=== PATIENT | male | born 1935 | race Caucasian/White ===

== ENCOUNTER 2019-04-01 08:39 | Outpatient (CLI) | payer MEDICARE, SELFPAY ==
--- NOTE | ~2019-04-01 | XR_ITS ---
EXAMINATION: XR barium swallow modified EXAM DATE: 04/01/2019 09:39 INDICATION: Dysphagia. TECHNIQUE: Modified barium esophagram was performed by myself to administered fluoroscopy, in conjun ction with speech pathologist who administered barium in varying consistencies as per speech patholog ist documentation. This was recorded on tape. The DAP for this procedure was 0.9 Gycm2. FINDINGS: Oral stage: Adequate function. Pharyngeal phase: Adequate function. Laryngeal penetration: None. Aspiration: None. Laryngeal sensitivity: Present. IMPRESSION: Patient tolerated oral feedings in the upright position. Please refer to speech patholo gist findings and specific feeding recommendations. Reviewed, dictated and finalized at location A. R SETTER IMPRESSION: Patient tolerated oral feedings in the upright position. Please r efer to speech pathologist findings and specific feeding recommendations.
--- NOTE | 2019-04-01 12:34 | STOPEVAL ---
MODIFIED BARIUM SWALLOW EVALUATION: Thank you for referring this patient to [facility] [place]. Admitting Provider: Attending Provider: Fanny Deleon MD Referring Provider: JUAN Outpatient Evaluation Start: 04/01/19 11:55 Freq: Status: Active Protocol: Document 04/01/19 09:00 BECHERERT (Rec: 04/01/19 12:02 BECHERERT [id number]) Therapy Assessment Status Assessment Status Assessment Status Evaluation Outpatient Past Medical History Neurological History Hx Parkinson's Disease Yes: dx'd 6 months ago per pt Cardiovascular History Hx Coronary Artery Bypass Graft Yes: triple Gastrointestinal History Hx Esophageal Disorders Yes: multiple dilatations Pain Assessment Timing of Pain Assessment Timing of Pain Assessment Assessment Self Report Self Report Pain Level 0 Pain Scale Pain Scale Used Numeric (1 - 10) Pain Score Pain Score 0: Self Report Modified Barium Swallow Evaluation Recent Swallowing History Reports Dysphagia Yes: I can't swallow solids Onset of Dysphagia 1-2 weeks History of Dysphagia No History of Related Medical Diagnosis Parkinson's Disease Other Factors Impacting Dysphagia None History of Pneumonia No Reported Difficult Consistencies Solids Intake Method Prior to Swallow Oral Evaluation Diet Prior to Swallow Evaluation Regular, Level 7 Liquid Consistency Prior to Swallow Thin (0) Evaluation Consistency Thin Uncontrolled 2 Method of Presentation Straw Oral Preparatory Symptoms None Oral Phase Symptoms None Pharyngeal Phase Symptoms Within Functional Limits,Bony Protuberance Severity of Vallecular Residue None - 0% No Residue Severity of Pyriform Sinus Residue None - 0% No Residue 8 Point Laryngeal Penetration-Aspiration Material Does Not Enter Airway Scale Cervical/Esophageal Symptoms Within Functional Limits Thin Uncontrolled 1 Method of Presentation Cup Oral Preparatory Symptoms None Oral Phase Symptoms None Pharyngeal Phase Symptoms Within Functional Limits,Bony Protuberance Severity of Vallecular Residue None - 0% No Residue Severity of Pyriform Sinus Residue None - 0% No Residue 8 Point Laryngeal Penetration-Aspiration Material Does Not Enter Airway Scale Cervical/Esophageal Symptoms Within Functional Limits Solid Consistency Uncontrolled 2 Other Amount cracker Method of Presentation Spoon Oral Preparatory Symptoms None Oral Phase Symptoms None Pharyngeal Phase Symptoms Within Functional Limits,Bony Protuberance Severity of Vallecular Residue None - 0% No Residue Severity of Pyriform S
== END 2019-04-01 08:40 | disposition home or self-care (01) ==
LOC: ANHIMG 08:45
PROVIDERS: PCP Family Medicine; Visit Provider Family Medicine
DX: T17.908A Unspecified foreign body in respiratory tract, part unspecified causing other injury, initial encounter (principal); R13.10 Dysphagia, unspecified; X58.XXXA Exposure to other specified factors, initial encounter; Y93.9 Activity, unspecified; Y92.9 Unspecified place or not applicable; Y99.9 Unspecified external cause status
CPT/HCPCS: 92611

== ENCOUNTER 2019-04-03 09:40 | Inpatient (IN) | payer MEDICARE, SELFPAY ==
[2019-04-03] VITALS (16 sets, daily range): BP systolic 85–117; BP diastolic 46–88; PULSE 58–130; RESP 17–35; TEMP 36.4–37.1; O2SAT 88–100; BMI 24.6; BMI 24.9
--- NOTE | ~2019-04-03 | NM_ITS ---
NM pul perf vent debbi dif w im INDICATION: Shortness of breath TECHNIQUE: The patient inhaled aerosolized 13.9 mCi xenon-133. Following ventilation scan, 4.7 mCi T c 99m MAA was injected intravenously for perfusion images. Multiple images were then acquired. COMPARISON: Chest x-ray dated 04/03/2019 FINDINGS: The comparison chest radiograph demonstrates basilar atelectasis with cardiomegaly. There a re small matched defect in the left lower lobe. Mild retention of radiotracer on washout images consi stent with obstructive pulmonary disease. No significant V/Q mismatches are identified. There are mat ched defects in the left lower lobe as well. IMPRESSION: 1: Low probability for pulmonary embolism. Reviewed, dictated and finalized at location A. OMECHANISM ASSEMBLER
--- NOTE | ~2019-04-03 | XR_ITS ---
EXAMINATION: XR chest 2V DATE: 04/06/2019 09:49 INDICATION: Pneumonia. TECHNIQUE: Frontal and lateral views of the chest were obtained. COMPARISON: Chest 2 views 04/03/2019, CT abdomen and pelvis 08/02/2018 FINDINGS: There is a large hiatal hernia. There is eventration of anterior right hemidiaphragm. There is chronic pleural thickening on the left. No significant pleural effusion. There is mild atelectasi s in the lower lung zones. No pneumothorax. Cardiomegaly is noted. Median sternotomy wires and medias tinal surgical clips are seen, likely from prior coronary artery bypass grafting. IMPRESSION: 1. Large hiatal hernia. 2. Mild atelectasis in the lower lung zones. 3. Cardiomegaly. Reviewed, dictated and finalized at location A. INKER UPPERS
--- NOTE | ~2019-04-03 | XR_ITS ---
EXAMINATION: XR chest 2V DATE: 04/03/2019 10:05 INDICATION: Shortness of breath. TECHNIQUE: Frontal and lateral views of the chest were obtained. COMPARISON: Chest 2 views 05/06/2018, CT abdomen and pelvis 10/02/2018 FINDINGS: There is eventration of anterior right hemidiaphragm. There is chronic pleural thickening o n the left. No significant pleural effusion. There is a large hiatal hernia. There is mild atelectasi s in the lower lung zones. No pneumothorax. Cardiomegaly is noted. Median sternotomy wires and medias tinal surgical clips are seen, likely from prior coronary artery bypass grafting. IMPRESSION: 1. Large hiatal hernia. 2. Mild atelectasis in the lower lung zones. 3. Cardiomegaly. Reviewed, dictated and finalized at location A. CTION MOLDING MACHINE SETTER
--- NOTE | 2019-04-03 09:48 | ECG_ITS ---
Measurements Intervals [place] Rate: 125 P: 195 OH: 116 QRS: -77 QRSD: 142 T: 79 QT: 331 QTc: 479 Interpretive Statements SINUS OR ECTOPIC ATRIAL TACHYCARDIA VENTRICULAR PREMATURE COMPLEXES IVCD, CONSIDER ATYPICAL LBBB INFERIOR INFARCT OR DUE TO LBBB BASELINE ARTIFACT- I, III, AVL ABNORMAL ECG Electronically Signed On 04-04-2019 17:44:11 SENIOR ENGINEERING TEAM LEADER by Michael Mendoza D.O.
--- NOTE | 2019-04-03 10:03 | ED.SOB ---
HPI - SOB/Dyspnea General Chief Complaint: Shortness of Breath/Dyspnea Stated Complaint: DIFFICULTY BREATHING Time Seen by Provider: 04/03/19 09:44 Source: patient and RN notes reviewed Mode of arrival: EMS Limitations: no limitations History of Present Illness HPI Narrative: Pt is an 83 y/o male presenting to the ED c/o SOB. Pt reports he has been experiencing SOB for about a week that worsened yesterday. Pt notes his Bipap machine that he uses for a Hx of sleep apnea stopped working last night. Pt reports his SOB is worsened with exertion and lying flat. Pt states he does not wear oxygen continuously throughout the day at home. Pt also reports lt sided ABD pain, generalized myalgia, generalized weakness that worsened yesterday, dry cough for 2-3 weeks, and pain with cough, but denies fever, CP, BLE swelling, N/V, diarrhea, or constipation. Pt states he has Hx's of Parkinson's disease and CHF, but denies Hx's of COPD or asthma. Pt notes he sees Dr. Egan as his Rock Singer due to a Hx of a leaky valve . Pt states he is able to ambulate with a walker at home. Pertinent past history: congestive heart failure Onset (ago): week(s) (1) Exacerbating factors: lying flat and exertion Associated symptoms: cough (Dry), abdominal pain (LT sided; generalized weakness; generalized myaglia) and other (Pain with cough;) Related Data Allergies Allergy/AdvReac Type Severity Reaction Status Date / Time iodine Allergy Severe SHOCK FROM Verified 04/03/19 11:02 CARDIAC CATH Iodinated Contrast Media Allergy Unknown Unknown Verified 04/03/19 11:02 shellfish derived Allergy Unknown Asthma Verified 04/03/19 11:02 Contrast Media Allergy Severe SHOCK FROM Uncoded 04/03/19 11:02 CARDIAC CATH Review of Systems Review of Systems: Narrative: Constitutional: Positive for generalized weakness. Negative for fever. Respiratory: Positive for dyspnea, dry cough, and pain with cough. Cardiovascular: Negative for chest pain. Gastrointestinal: Positive for lt sided abdominal pain. Negative for nasuea, vomiting, diarrhea, or constipation. Musculoskeletal: Positive for generalized myaglia. Negative for BLE swelling. All systems reviewed & are unremarkable except as noted in HPI and below PMFSH Past Medical History Medical History Arthritis Mcdermott's esophagus with dysplasia BPH (benign prostatic hyperplasia) CAD (coronary artery disease) CHF (congestive heart failure) With last echocardiogram within our system December 2012 demonstrated mild mitral regurgitation mild aortic regurgitation, dilated ascending aorta at 4.2 cm, atrial septal aneurysm with without evidence of interatrial shunt Dementia Diagnosed 2019 Diverticulitis February 2008 DVT (deep venous thrombosis) Essential (primary) hypertension GERD (gastroesophageal reflux disease) Gout, unspecified Hard of hearing Hiatal hernia History of esophageal stricture Normal modified barium swallow 04/01/2019 HLD (hyperlipidemia) Kidney stones Most recent was October 2018 with cystoscopy and extraction recently passed stone with right ureteroscopy performed by Dr. Chen Macular degeneration Migraine Mitral valve prolapse Parkinson disease Parkinson disease Pericarditis Pneumonia PVD (peripheral vascular disease) Sleep apnea with use of nocturnal bilevel positive airway pressure (BPAP) Polysomnogram October 2015 recommended ASV with I max of 15 cm water I minimum of 3 cm water and end-expiratory pressure of 6 cm water Spinal stenosis Thoracic aortic aneurysm, without rupture 4.7 center fusiform ascending aneurysm noted on CT scan 2014 Ulcer Surgical History Surgical History H/O cystoscopy History of back surgery L5-S1 in the 1970s History of bilateral cataract extraction History of urethral stent Hx of CABG 2012 three vessel CABG performed at [facility]. Patient's cardiol
[2019-04-03 10:28] LABS: Basophils Absolute Auto 0.1 K/mm3 (0.0-0.1); Basophils Percent Auto 0.4 % (0.2-1.2); Eosinophils Absolute Auto 0.2 K/mm3 (0-0.3); Eosinophils Percent Auto 1.1 % (0-4.4); Hematocrit 42.3 % (42.0-52.0); Hemoglobin 13.4 g/dL (14.0-18.0); Immature Granulocyte Absolute 0.07 K/mm3 (0.00-0.031); Immature Granulocyte Percent A 0.4 % (0-0.5); Lymphocytes Absolute Auto 0.73 K/mm3 (0.9-3.2); Lymphocytes Percent Auto 4.3 % (18.3-44.2); Mean Corpuscular HGB Conc 31.7 g/dl (32-36); Mean Corpuscular Hemoglobin 28.6 pg (26-34); Mean Corpuscular Volume 90.4 fl (80-100); Mean Platelet Volume 12.2 fl (7.4-10.4); Monocytes Absolute Auto 1.9 K/mm3 (0.1-0.6); Monocytes Percent Auto 11.3 % (2.6-8.5); Neutrophils Absolute Auto 14.1 K/mm3 (1.3-6.7); Neutrophils Percent Auto 82.5 % (45.5-73.1); Platelet Count Result 254 k/mm3 (150-375); Red Blood Count 4.68 M/mm3 (4.6-6.20); Red Cell Distribution Width 14.3 % (11.5-14.5); White Blood Count 17.1 K/mm3 (4.5-10.0)
[2019-04-03 10:41] LABS: Blood Urea Nitrogen 29 mg/dL (9-20); Calcium 9.5 mg/dL (8.4-10.2); Carbon Dioxide 22 mmol/L (22-30); Chloride 105 mmol/L (98-107); Estimated Glomerular Filt Rate 41; Glucose 81 mg/dL (75-110); Sodium 141 mmol/L (137-145)
[2019-04-03 10:56] LABS: D Dimer 0.71 ug/mL (<0.48)
[2019-04-03 10:57] LABS: NT Pro B Type Natriuretic Pept 9520 PG/ML (5-100); Troponin I 0.704 ng/mL (0.000-0.034)
[2019-04-03 11:37] LABS: Lactic Acid Reflex 1.2 mmol/L (0.7-2.1)
[2019-04-03] MEDS: FUROSEMIDE INJ 40 MG/4 ML VIAL IV PUSH (12:55)
[2019-04-03] MEDS: ACETAMINOPHEN 325 MG TABLET 650 MG PO (14:53)
--- NOTE | 2019-04-03 15:09 | PC.NURSE ---
Pt taken by [facility] for VQ scan, unable to transfer patient to IMU
[2019-04-03 18:11] LABS: Troponin I 0.796 ng/mL (0.000-0.034)
--- NOTE | 2019-04-03 23:34 | PM.IMHP ---
H&P: HPI History of Present Illness Chief complaint: Shortness of breath, weakness Narrative: Date and time of patient contact 04/03/2019 at 10:00 p.m. Eugene Rod is a 83 year old male with a past medical history of CHF, Parkinson's disease, and chronic pain who presented to the ER with shortness of breath, increasing weakness and cough. Patient reports he has been weak for several months and is being hip getting progressively worse for the last 3 weeks. Over the last 3 weeks he has had a cough that is nonproductive in nature associated with rhinorrhea. He denies any fevers or chills. He reports his is been ill with similar symptoms. He saw his primary care physician and was prescribed amoxicillin which has seemed to help his cough. He does have a history of esophageal stricture in the past. He reports he was sometimes coughed so much that he feels if it is trachea closes off and then he will become panicked for a minute or 2. He has been having episodes of difficulty swallowing with eating and coughing up food if it is solid.. He subsequently had an outpatient esophagram 04/01/2019 which was normal. He reports for the 48 hours he has been able to eat what he wants without having recurrent vomiting. He has been having significant orthopnea and some mild dyspnea on exertion. No orthopnea has been worse for the last 3 weeks. He wears a BiPAP at night but usually have to take on and off multiple times a night. However last night he felt that the BiPAP was broke because it was blowing some much pressure at him in leaking around the mask. He denies any chest pain or palpitations. He does have chronic low back pain due to spinal stenosis. His doctors recently changes pain medications to try to help with his pain and weakness without success. He does have Parkinson's and has had increased tremor over recent months. He states that his doctor has discussed with him starting some Parkinson's medications but has not started them as of yet. Patient denies having any lower extremity swelling or abdominal swelling. He reports chronic low urinary stream but feels as if he is able to completely empty his bladder. He occasionally has some dysuria with start of urinary stream but this resolves. Denies hematuria. He reports normal bowel movements without hematochezia or melena. He has chronic dry mouth. He wears dentures but has not or his bottom dentures in quite some time as they do not fit correctly. Source of information: Past medical records. And patient report. The patient is a good historian despite his tightness of dementia. Review of Systems Review of Systems: Narrative: Except as documented in the HPI, all other systems were reviewed and are negative. FORMERLY [facility], 1928[facility] Past Medical History Medical History (Updated 04/04/19 @ 00:35 by Moni Machado DO) Arthritis Mcdermott's esophagus with dysplasia BPH (benign prostatic hyperplasia) CAD (coronary artery disease) CHF (congestive heart failure) With last echocardiogram within our system December 2012 demonstrated mild mitral regurgitation mild aortic regurgitation, dilated ascending aorta at 4.2 cm, atrial septal aneurysm with without evidence of interatrial shunt Dementia Diagnosed 2019 Diverticulitis February 2008 DVT (deep venous thrombosis) Essential (primary) hypertension GERD (gastroesophageal reflux disease) Gout, unspecified Hard of hearing Hiatal hernia History of esophageal stricture Normal modified barium swallow 04/01/2019 HLD (hyperlipidemia) Kidney stones Most recent was October 2018 with cystoscopy and extraction recently passed stone with right ureteroscopy performed by Dr. Chen Macular degeneration Migraine Mitral valve prolapse Parkinson disease Parkinson disease Pericarditis Pneumonia PVD (peripheral vascular disease) Sleep apnea with use of nocturnal bilevel positive airway pressure (BPAP) Polysomnogram October 2015 recommended ASV with I max of 15
[2019-04-04] VITALS (15 sets, daily range): BP systolic 84–107; BP diastolic 43–93; PULSE 82–127; RESP 16–32; TEMP 36–36.4; O2SAT 96–100
--- NOTE | 2019-04-04 | ECHO_ITS ---
Patient Info Name: Eugene Rod Age: 83 years : 1935 Gender: Male Ht: 70 in Wt: 176 lbs BSA: 1.99 m2 HR: 115 bpm BP: 102 / 59 mmHg Technical Quality: Fair Exam Date: 04/04/2019 12:56 PM Exam Location: [facility] Patient Status: Inpatient Admit Date: 04/03/2019 Staff Ordering Physician: Leslie Doramn MD Patient Clerical Assistant: Cyndi Avila RDCS Attending Provider: Ko Dunham MD Exam Type: CA echo doppler color flow Study Info Complete two-dimensional, color flow and Doppler transthoracic echocardiogram is performed. Summary 1. Severe LV enlargement, mild LVH; severe global LV systolic dysfunction with ejection fraction approximately 15%; grade 3/4 diastolic function with elevated left heart pressures. Moderate left atrial enlargement. Mitral valve mildly thickened with mitral annular calcification, mild MR. Aortic valve sclerosis, mild stenosis, mild aortic regurgitation. Mild tricuspid regurgitation, RVSP 20 mmHg, probably an underestimation of PA pressures. Left Ventricle Left ventricular chamber dimension is severely enlarged. Left ventricular systolic function is severely reduced, estimated at <15%. There is mildly increased left ventricular wall thickness. The left ventricular diastolic function is grade IV diastolic dysfunction. Right Ventricle Right ventricular chamber dimension is normal. Right ventricular systolic function is normal. Left Atria Left atrial chamber dimension is moderately enlarged. Right Atria Right atrial chamber dimension is normal. Aortic Valve There is moderate aortic valve sclerosis. There is mild aortic valve stenosis with a peak velocity of 167 cm/s, mean gradient of 5 mmHg, and aortic valve area of 1.9 cm2. There is mild aortic valve regurgitation. Pulmonic Valve The pulmonic valve is not well visualized. There is mild pulmonic regurgitation. Mitral Valve The mitral valve has thickened leaflets. There is mild mitral valve regurgitation. The mitral valve annulus is mildly calcified. Tricuspid Valve The tricuspid valve leaflets are normal. There is mild tricuspid valve regurgitation. No pulmonary hypertension, estimated pulmonary arterial systolic pressure is 20 mmHg. Pericardium/Pleural The pericardium appears normal. There is no pericardial effusion. Aorta The aortic root size at the sinus of Valsalva is normal. The prox ascending aorta size is normal. Left Ventricular Outflow Tract Name Value Normal LVOT 2D LVOT Diameter 2.6 cm LVOT Doppler LVOT Peak Gradient 1 mmHg LVOT Mean Gradient 0 mmHg LVOT VTI 8 cm LVOT VTI/AV VTI Ratio 0.4 LVOT Stroke Volume 45 ml LVOT CO 5.1 l/min LVOT CI 2.5 l/min/m2 Pulmonic Valve Name Value Normal PV Doppler
[2019-04-04 05:57] LABS: Basophils Absolute Auto 0.1 K/mm3 (0.0-0.1); Basophils Percent Auto 0.4 % (0.2-1.2); Eosinophils Absolute Auto 0.4 K/mm3 (0-0.3); Eosinophils Percent Auto 2.9 % (0-4.4); Hematocrit 39.9 % (42.0-52.0); Hemoglobin 12.6 g/dL (14.0-18.0); Immature Granulocyte Absolute 0.06 K/mm3 (0.00-0.031); Immature Granulocyte Percent A 0.4 % (0-0.5); Lymphocytes Absolute Auto 1.53 K/mm3 (0.9-3.2); Lymphocytes Percent Auto 11.2 % (18.3-44.2); Mean Corpuscular HGB Conc 31.6 g/dl (32-36); Mean Corpuscular Hemoglobin 27.9 pg (26-34); Mean Corpuscular Volume 88.5 fl (80-100); Mean Platelet Volume 12.8 fl (7.4-10.4); Monocytes Absolute Auto 1.5 K/mm3 (0.1-0.6); Neutrophils Absolute Auto 10.1 K/mm3 (1.3-6.7); Neutrophils Percent Auto 74.1 % (45.5-73.1); Platelet Count Result 242 k/mm3 (150-375); Red Blood Count 4.51 M/mm3 (4.6-6.20); Red Cell Distribution Width 14.2 % (11.5-14.5); White Blood Count 13.7 K/mm3 (4.5-10.0)
[2019-04-04 06:15] LABS: Blood Urea Nitrogen 32 mg/dL (9-20); Calcium 9.1 mg/dL (8.4-10.2); Carbon Dioxide 23 mmol/L (22-30); Chloride 100 mmol/L (98-107); Estimated CRCL calculation 37 ml/min; Estimated Glomerular Filt Rate 48; Glucose 95 mg/dL (75-110); Potassium 4.2 mmol/L (3.4-5.0); Sodium 138 mmol/L (137-145)
[2019-04-04] MEDS: OPTI-GEN TAB 2 TABLET PO (09:43)
[2019-04-04] MEDS: PANTOPRAZOLE SOD SESQUIHYDRATE 20 MG TAB PO ×2 (09:44→17:50)
[2019-04-04] MEDS: lisinopriL 20 MG TABLET PO (09:45)
[2019-04-04] MEDS: LORATADINE 10 MG TABLET PO (09:45)
[2019-04-04] MEDS: allopurinoL 100 MG TABLET PO (09:45)
[2019-04-04] MEDS: TAMSULOSIN HCL 0.4 MG CAPSULE PO (09:46)
[2019-04-04] MEDS: ENOXAPARIN 40 MG/0.4 ML SYRINGE SUB-Q ×2 (09:46→14:05)
[2019-04-04] MEDS: DULOXETINE HCL 30 MG CAPSULE.DR PO (09:47)
[2019-04-04] MEDS: FINASTERIDE 5 MG TABLET PO (09:47)
[2019-04-04] MEDS: MICONAZOLE NITRATE 2% CREAM 30 GM TUBE 1 APPLIC TOPICAL ×2 (09:48→22:38)
[2019-04-04] MEDS: FUROSEMIDE INJ 40 MG/4 ML VIAL IV PUSH ×2 (09:48→17:50)
[2019-04-04] MEDS: FLUTICASONE PROPIONATE 0.05% NA SPR 16 GM BTL (*BKC) 2 SPRAY NASAL (09:48)
--- NOTE | 2019-04-04 12:14 | PM.CNCAR ---
Assessment and Plan Assessment and plan (1) Community acquired pneumonia: Qualifiers: Laterality: unspecified laterality Qualified Code(s): J18.9 - Pneumonia, unspecified organism Code(s): J18.9 - Pneumonia, unspecified organism Status: Acute Assessment and Plan: Management of patient's respiratory tract infection with appropriate antibiotics as per primary team. (2) Ischemic cardiomyopathy: Code(s): I25.5 - Ischemic cardiomyopathy Status: Acute Assessment and Plan: Echocardiogram with Doppler is pending. Patient has known CAD, minimal troponin elevation which is essentially flat in the setting of infection. EKG shows atrial fibrillation with RVR. (3) Atrial fibrillation with RVR: Code(s): I48.91 - Unspecified atrial fibrillation Status: Acute Assessment and Plan: 83-year-old male with CAD, history of CABG x3 approximately 10 years ago as per patient (operative report is not available at this moment), hypertension, CHF with preserved ejection fraction, valve heart disease-moderate MR, moderate severe AI; hypertension, Parkinson disease, CKD. Patient admitted with symptoms of respiratory tract infection, also found to be in atrial fibrillation with RVR. Troponins are minimally elevated and essentially flat. NT proBNP is elevated. -since patient's blood pressure is relatively low, will initiate on amiodarone. Continue to monitor on telemetry. -anticoagulation with low-molecular weight heparin -hold home antihypertensives for now due to hypotension. -echocardiogram with Doppler is pending -monitor on telemetry History of Present Illness History of Present Illness Consult date/time: 04/04/19 12:14 Date of consult: 04/04/2019 Reason for consult: Worsening shortness of breath, CHF Requesting physician:Dr Dorman Chief complaint: Worsening shortness of breath HPI: 83-year-old male with CAD, history of CABG x3 approximately 10 years ago as per patient (operative report is not available at this moment), hypertension, CHF with preserved ejection fraction, valve heart disease-moderate MR, moderate severe AI; hypertension, CKD, Parkinson disease. Patient has baseline dyspnea on mild exertion. He uses walker for ambulation around his house. He states that his shortness of breath got worse for about 2 weeks associated with cough without significant expectoration. He reports pain in the chest during coughing. He does not have pain in the chest when he walks or when he does not cough. He also reports palpitations, denies any dizziness or syncope. He reports generalized weakness. Patient states that he was exposed to his who has also had described as bad cold in last few days. He denies any fever or chills at present. He presented to [facility] emergency room with these symptoms on 04/03/2019. EKG which I personally evaluated showed atrial fibrillation with RVR, left bundle branch block, inferior infarct-age undetermined. Previous EKG had shown sinus rhythm, intraventricular conduction delay. Patient does not recall any previous diagnosis of atrial fibrillation. Troponins are minimally elevated and essentially flat. NT proBNP is elevated at 9 520. Previous echocardiogram from 01/02/2017 reported ejection fraction 50-55%, grade 2 diastolic dysfunction, anterior mitral valve prolapse, moderate MR, moderate severe AI. Patient follows up with Dr. Egan for his cardiovascular care Reason For Visit: Shortness of breath, weakness Review of Systems Constitutional: Constitutional: Denies chills, Denies fatigue, Denies fever(s) and Denies headache(s) Comments: Generalized fatigue and weakness Eyes: Eyes: Reports as per HPI, Denies change in vision, Denies loss of vision and Denies eye pain ENT: Reports as per HPI, Reports Normal hearing present, Denies headache(s), Denies lip swelling, Denies epistaxis and Denies sore throat Cardiovascular: Cardiovascular: Reports
[2019-04-04] MEDS: AMIODARONE 360 MG/D5W 200 ML 360 MG/200 ML BAG 33.3 MG IV CONT (14:02)
--- NOTE | 2019-04-04 15:38 | PM.IMPN ---
Progress Note: A&P Assessment and Plan (1) Atrial fibrillation with RVR: Code(s): I48.91 - Unspecified atrial fibrillation Status: Acute Assessment and Plan: Patient with new onset atrial fibrillation patient seen by parakeet raiser started the patient on amiodarone and Lovenox will continue to monitor on telemetry cardiac echo is pending will order TSH profile (2) CHF exacerbation: Qualifiers: Heart failure type: unspecified Qualified Code(s): I50.9 - Heart failure, unspecified Code(s): I50.9 - Heart failure, unspecified Status: Acute Assessment and Plan: 04/04/19 15:38 Patient is 83-year-old male with history of coronary artery disease status post CABG three-vessel 10 years ago with history of hypertension congestive heart failure aortic insufficiency presented emergency department with a complaint of weakness fatigue which he attributed to upper respiratory infection because his also has similar URI, patient complains of chest pain with cough denies any chest pain with exertion denies any fever or chills, patient was seen by parakeet raiser reviewed his EKG and patient is found to have a new onset atrial fibrillation with RVR started the patient on amiodarone drip and Lovenox, patient is also being treated for community-acquired pneumonia I suspect patient has silent aspiration added Flagyl to cover for anaerobics, patient also has a tremor was seen by his primary care doctor suspect patient may have Parkinson disease however he was not started on any medication pending neurology consult which will get while in the hospital, patient cardiac echo is pending most likely patient has systolic dysfunction will follow-up on echo. (3) Community acquired pneumonia: Qualifiers: Laterality: unspecified laterality Qualified Code(s): J18.9 - Pneumonia, unspecified organism Code(s): J18.9 - Pneumonia, unspecified organism Status: Acute Assessment and Plan: Given the patient's leukocytosis cough and x-ray findings will continue patient on antibiotic therapy with Rocephin and azithromycin. The patient's home Celexa has been held food contraindications with azithromycin. Patient is placed on amiodarone for new onset atrial fibrillation will stop azithromycin and replace with doxycycline will also add of Flagyl as I suspect patient may have silent aspiration repeat x-ray in 2 days (4) Fatigue: Qualifiers: Fatigue type: other Qualified Code(s): R53.83 - Other fatigue Code(s): R53.83 - Other fatigue Status: Acute Assessment and Plan: Multifactorial in nature. Likely due to a combination of the patient's Parkinson's, acute infection and CHF exacerbation. However cannot also rule out the effect of statin therapy in a patient greater than 80 years old. Will hold patient's statins. Will continue to treat other underlying causes. Patient's fatigue could also be due to his chronic pain and or spinal stenosis. His heart rate is also been variable with episodes of bradycardia interspersed with tachycardia. Will continue to monitor on telemetry in the intermediate unit. (5) Obstructive sleep apnea (adult) (pediatric): Code(s): G47.33 - Obstructive sleep apnea (adult) (pediatric) Status: Acute Assessment and Plan: Auto titrating BiPAP has been ordered. Subjective Date/time seen: 04/04/19 15:38 Patient is 83-year-old male with history of coronary artery disease status post CABG three-vessel 10 years ago with history of hypertension congestive heart failure aortic insufficiency presented emergency department with a complaint of weakness fatigue which he attributed to upper respiratory infection because his also has similar URI, patient complains of chest pain with cough denies any chest pain with exertion denies any fever or chills, patient was seen by parakeet raiser reviewed his EKG and patient is found to have a new onset atrial fibril
[2019-04-04] MEDS: metroNIDAZOLE 250MG/ISO 50 ML 250 MG/50 ML BAG 50 MG IVPB ×2 (15:45→23:55)
[2019-04-04] MEDS: AMIODARONE 360 MG/D5W 200 ML 360 MG/200 ML BAG 16.7 MG IV CONT (22:38)
[2019-04-04] MEDS: ENOXAPARIN 80 MG/0.8 ML SYRINGE SUB-Q (22:38)
[2019-04-05] VITALS (18 sets, daily range): BP systolic 71–101; BP diastolic 50–67; PULSE 103–116; RESP 10–28; TEMP 36.1–36.6; O2SAT 92–100
[2019-04-05 05:05] LABS: Hematocrit 36.7 % (42.0-52.0); Hemoglobin 11.7 g/dL (14.0-18.0); Mean Corpuscular HGB Conc 31.9 g/dl (32-36); Mean Corpuscular Hemoglobin 28.5 pg (26-34); Mean Corpuscular Volume 89.5 fl (80-100); Platelet Count Result 223 k/mm3 (150-375); Red Cell Distribution Width 14.3 % (11.5-14.5); White Blood Count 15.1 K/mm3 (4.5-10.0)
[2019-04-05 05:23] LABS: Blood Urea Nitrogen 39 mg/dL (9-20); Calcium 8.8 mg/dL (8.4-10.2); Carbon Dioxide 21 mmol/L (22-30); Chloride 101 mmol/L (98-107); Estimated CRCL calculation 33 ml/min; Estimated Glomerular Filt Rate 41; Glucose 110 mg/dL (75-110); Magnesium 1.6 mg/dL (1.6-2.3); Potassium 3.6 mmol/L (3.4-5.0); Sodium 135 mmol/L (137-145)
[2019-04-05] MEDS: metroNIDAZOLE 250MG/ISO 50 ML 250 MG/50 ML BAG 50 MG IVPB ×4 (05:33→23:37)
[2019-04-05] MEDS: OPTI-GEN TAB 2 TABLET PO (08:56)
[2019-04-05] MEDS: TAMSULOSIN HCL 0.4 MG CAPSULE PO (08:57)
[2019-04-05] MEDS: DULOXETINE HCL 30 MG CAPSULE.DR PO (08:58)
[2019-04-05] MEDS: PANTOPRAZOLE SOD SESQUIHYDRATE 20 MG TAB PO ×2 (08:58→16:21)
[2019-04-05] MEDS: allopurinoL 100 MG TABLET PO (08:58)
[2019-04-05] MEDS: FINASTERIDE 5 MG TABLET PO (08:58)
[2019-04-05] MEDS: FLUTICASONE PROPIONATE 0.05% NA SPR 16 GM BTL (*BKC) 2 SPRAY NASAL (08:59)
[2019-04-05] MEDS: ENOXAPARIN 80 MG/0.8 ML SYRINGE SUB-Q ×2 (09:00→20:55)
[2019-04-05] MEDS: MICONAZOLE NITRATE 2% CREAM 30 GM TUBE 1 APPLIC TOPICAL ×2 (09:01→20:55)
[2019-04-05] MEDS: FUROSEMIDE INJ 40 MG/4 ML VIAL IV PUSH ×2 (09:01→16:21)
[2019-04-05] MEDS: LORATADINE 10 MG TABLET PO (09:01)
[2019-04-05] MEDS: AMIODARONE 360 MG/D5W 200 ML 360 MG/200 ML BAG 16.7 MG IV CONT ×2 (10:41→22:23)
[2019-04-05] MEDS: POTASSIUM CHLORIDE 20 MEQ PACKET (FOR LIQUID) 40 MEQ PO (10:44)
--- NOTE | 2019-04-05 10:49 | PM.PNCARD ---
Progress Note: A&P Assessment and Plan (1) Atrial fibrillation with RVR: Code(s): I48.91 - Unspecified atrial fibrillation Status: Acute Assessment and Plan: Continue IV amiodarone for now, may switch to p.o. amiodarone tomorrow, anticipate short-term use of amiodarone unless otherwise indicated. Continue anticoagulation with low-molecular weight heparin for now, discharge home on anticoagulation with apixaban 2.5 mg b.i.d. given patient's age and renal insufficiency. (2) Community acquired pneumonia: Qualifiers: Laterality: unspecified laterality Qualified Code(s): J18.9 - Pneumonia, unspecified organism Code(s): J18.9 - Pneumonia, unspecified organism Status: Acute Assessment and Plan: Antibiotics as per primary team (3) Ischemic cardiomyopathy: Code(s): I25.5 - Ischemic cardiomyopathy Status: Acute Assessment and Plan: Patient has severe LV systolic dysfunction, ejection fraction about 15%. His Hi inhibitor is on hold due to renal insufficiency and relatively low blood pressure. If his blood pressure is reasonable tomorrow, may start low-dose metoprolol succinate 25 mg daily. Subjective Date/time seen: 83-year-old male with CAD, history of CABG x3 approximately 10 years ago as per patient (operative report is not available at this moment), hypertension, CHF , valve heart disease; hypertension, Parkinson disease, CKD. Patient admitted with symptoms of respiratory tract infection, also found to be in atrial fibrillation with RVR. Troponins are minimally elevated and essentially flat. NT proBNP is elevated. 04/05/2019: Patient's main complaint today is back pain which is chronic in nature. He does not have any significant shortness of breath at rest. He denies chest pain. His echocardiogram showed severe LV systolic dysfunction with ejection fraction about 15%. He was found to be in atrial fibrillation yesterday with RVR, was initiated on IV amiodarone, has reverted back to sinus rhythm. He is on anticoagulation with low-molecular weight heparin. Patient is receiving antibiotics for his pneumonia. Exam Const: General: no acute distress, alert and awake HENMT: Head: normocephalic and atraumatic Ears: hearing grossly normal bilaterally and external ears normal General nose exam: Normal external nose present and no epistaxis Face and sinus: normal facial exam and no ecchymosis Mouth: Yes tongue normal and Yes moist mucous membranes Teeth and gingiva: dentition normal Eyes: Conjunctivae: conjunctivae normal Sclera: sclerae normal Pupils: Equal, round and reactive pupils present EOM: EOMs intact bilaterally Neck: Neck: normal visual inspection, supple and no JVD Thyroid: thyroid normal Carotids: normal carotid upstroke Resp: Effort & Inspection: normal respiratory effort and able to speak in complete sentences Other: Scattered crackles Cardio: Rate: regular rate Rhythm: regular rhythm Heart sounds: S1 normal heart sound present and S2 normal heart sound present GI: Inspection: normal to inspection GI Palp: No abdominal tenderness Auscultation: normal bowel sounds Skin: Other: no rash on exposed areas, no cyanosis Neuro: Cranial nerves: Yes Equal, round and reactive pupils present and Yes Normal hearing present Other: alert, oriented, no major focal deficits on gross neurological examination Extrem: Other: no edema, no cyanosis, no major deformities Psych: Appearance: grossly normal Mental Status: mental status grossly normal Objective Data Vital Signs Vital Signs: Vital Signs - 24 hr 04/04/19 12:00 04/04/19 12:54 04/04/19 14:00 Temperature 36.1 C L Pulse Rate 126 H 110 H Respiratory Rate 32 H Blood Pressure 84/50 L 87/53 L Pulse Oximetry 99 04/04/19 16:00 04/04/19 18:00 04/04/19 19:52 Temperature 36.0 C L 36.2 C L Pulse Rate 103 H 107 H 101 H Respiratory Rate 16 18 Blood Pressure 107/83 86/43 L Pulse Oximetry 100
[2019-04-05] MEDS: MAGNESIUM OXIDE 400 MG TABLET PO (11:57)
--- NOTE | 2019-04-05 12:46 | PCSTNOTE ---
Please refer to the Bedside Evaluation in the EMR.
--- NOTE | 2019-04-05 13:26 | PHAR ---
HOME MED VERIFICATION Drug Name: Nucynta ER Ingredients: Tapentadol Hydrochloride -- 50 MG Related Documents: DRUGDEX Evaluations - TAPENTADOL Color: White Shape: [place] Imprint: OMJ 50 Form: Oral Tablet, Extended Release [facility] RX [id number] 1T PO Q12HR
--- NOTE | 2019-04-05 17:02 | PCOTNOTE ---
The patient treatment was not able to be completed on [04/05/2019]. Will plan to continue treatment per plan of care.
--- NOTE | 2019-04-05 17:19 | PM.IMPN ---
Progress Note: A&P Assessment and Plan (1) Atrial fibrillation with RVR: Code(s): I48.91 - Unspecified atrial fibrillation Status: Acute Assessment and Plan: Patient with new onset atrial fibrillation patient seen by formal service waiter started the patient on amiodarone and Lovenox will continue to monitor on telemetry cardiac echo is pending will order TSH profile (2) CHF exacerbation: Qualifiers: Heart failure type: unspecified Qualified Code(s): I50.9 - Heart failure, unspecified Code(s): I50.9 - Heart failure, unspecified Status: Acute Assessment and Plan: 04/05/19 17:19 Patient is 83-year-old male with history of coronary artery disease status post CABG three-vessel 10 years ago with history of hypertension congestive heart failure aortic insufficiency presented emergency department with a complaint of weakness fatigue which he attributed to upper respiratory infection because his also has similar URI, patient complains of chest pain with cough denies any chest pain with exertion denies any fever or chills, patient was seen by formal service waiter reviewed his EKG and patient is found to have a new onset atrial fibrillation with RVR started the patient on amiodarone drip and Lovenox, patient is also being treated for community-acquired pneumonia I suspect patient has silent aspiration added Flagyl to cover for anaerobics, patient also has a tremor was seen by his primary care doctor suspect patient may have Parkinson disease however he was not started on any medication pending neurology consult which will get while in the hospital, patient seen by formal service waiter patient cardiac echo showed ejection fraction 20% patient being diuresed gently, for AFib patient is still on amiodarone drip rate is about 100 patient is clinically stable may possibly switch him over to p.o. amiodarone and discharge the patient low-dose Eliquis 2.5 mg b.i.d. as patient is over 80 years old poor renal function, patient still neurology consult, patient with chronic pain we have continued home regimen patient is clinically stable (3) Community acquired pneumonia: Qualifiers: Laterality: unspecified laterality Qualified Code(s): J18.9 - Pneumonia, unspecified organism Code(s): J18.9 - Pneumonia, unspecified organism Status: Acute Assessment and Plan: Given the patient's leukocytosis cough and x-ray findings will continue patient on antibiotic therapy with Rocephin and azithromycin. The patient's home Celexa has been held food contraindications with azithromycin. Patient is placed on amiodarone for new onset atrial fibrillation will stop azithromycin and replace with doxycycline will also add of Flagyl as I suspect patient may have silent aspiration repeat x-ray tomorrow (4) Fatigue: Qualifiers: Fatigue type: other Qualified Code(s): R53.83 - Other fatigue Code(s): R53.83 - Other fatigue Status: Acute Assessment and Plan: Multifactorial in nature. Likely due to a combination of the patient's Parkinson's, acute infection and CHF exacerbation. However cannot also rule out the effect of statin therapy in a patient greater than 80 years old. Will hold patient's statins. Will continue to treat other underlying causes. Patient's fatigue could also be due to his chronic pain and or spinal stenosis. His heart rate is also been variable with episodes of bradycardia interspersed with tachycardia. Will continue to monitor on telemetry in the intermediate unit. (5) Obstructive sleep apnea (adult) (pediatric): Code(s): G47.33 - Obstructive sleep apnea (adult) (pediatric) Status: Acute Assessment and Plan: Auto titrating BiPAP has been ordered. Subjective Date/time seen: 04/05/19 17:19 Patient is 83-year-old male with history of coronary artery disease status post CABG three-vessel 10 years ago with history of hypertension congestive heart failure aortic insuffic
[2019-04-06] VITALS (20 sets, daily range): BP systolic 84–98; BP diastolic 45–62; PULSE 95–109; RESP 18–24; TEMP 36.1–36.9; O2SAT 95–100
[2019-04-06 04:59] LABS: Hematocrit 38.4 % (42.0-52.0); Hemoglobin 12.4 g/dL (14.0-18.0); Mean Corpuscular HGB Conc 32.3 g/dl (32-36); Mean Corpuscular Hemoglobin 28.7 pg (26-34); Mean Corpuscular Volume 88.9 fl (80-100); Mean Platelet Volume 12.3 fl (7.4-10.4); Platelet Count Result 255 k/mm3 (150-375); Red Blood Count 4.32 M/mm3 (4.6-6.20); Red Cell Distribution Width 14.4 % (11.5-14.5); White Blood Count 16.5 K/mm3 (4.5-10.0)
[2019-04-06 05:13] LABS: Blood Urea Nitrogen 51 mg/dL (9-20); Calcium 9.2 mg/dL (8.4-10.2); Carbon Dioxide 22 mmol/L (22-30); Chloride 99 mmol/L (98-107); Estimated CRCL calculation 26 ml/min; Estimated Glomerular Filt Rate 32; Glucose 120 mg/dL (75-110); Potassium 3.7 mmol/L (3.4-5.0); Sodium 136 mmol/L (137-145)
[2019-04-06] MEDS: metroNIDAZOLE 250MG/ISO 50 ML 250 MG/50 ML BAG 50 MG IVPB ×3 (06:21→18:23)
--- NOTE | 2019-04-06 06:25 | CONS_ITS ---
DATE OF CONSULTATION: HISTORY OF PRESENT ILLNESS: This 83-year-old right-handed male presented to the [facility] Emergency Room with a complaint of difficulties in breathing along with generalized weakness of several months duration, gradually getting worse over the last several weeks and also with a history of nonproductive cough without fever or chills, though he has received the amoxicillin as per the primary physician. In the past, he has ongoing history of 1. Congestive heart failure. 2. Parkinson disease. 3. Chronic pain. 4. Esophageal stricture. He easily gets panicked when he feels he cannot breathe. Also had been having difficulties in swallowing. He did have outpatient esophagram on 04/01/2019, which was reportedly normal, and he wears BiPAP at night, usually has to be taken on and off multiple times at night. He does complain of chronic low back pain and also has history of Parkinson disease, increasing tremor, though he has not been taking antiparkinsonian medication. He complains of dysuria, difficulties in voiding. PAST HISTORY: Very consistent with the arthritis, Mcdermott esophagitis, benign prostatic hypertrophy, chronic coronary artery disease, congestive heart failure, dementia, diverticulosis, hypertension, GERD, gout, hearing deficit, hiatal hernia, esophageal stricture, hyperlipidemia, renal stone, macular degeneration, migraine, mitral valve prolapse, Parkinson disease, pericarditis, sleep apnea, spinal stenosis, and thoracic aortic aneurysm without rupture 4.7 cm fusiform as per the CT scan done in 2015, has undergone back surgery, cataract extraction, urethral stenting, CABG, vein stripping, and colonoscopy. SOCIAL HISTORY: He is a never smoker. Retired. MEDICATIONS: Taking multiple medications as outlined. PHYSICAL EXAMINATION: GENERAL: Today, he was awake, alert, cooperative, in no obvious acute distress. HEENT: Head was normocephalic with no cranial bruit. Ears, nose, throat exam was normal. NECK: Supple. HEART: Regular. LUNGS: Clear. ABDOMEN: Soft. NEUROLOGICAL: He was awake, alert, had difficulty in carrying on the conversation but speech was not dysphasic, not dysarthric. Pupils round, regular. [place] of vision full. Extraocular movements full. Face symmetrical. Tongue midline. Motor examination revealed generally decreased strength. No focal motor deficits. Sluggish reflexes, downgoing plantar responses. ASSESSMENT AND PLAN: At this stage, because he is not receiving any treatment for Parkinson disease, I will recheck with him and see if he wants to start on the treatment. In the meantime, the studies will be done and further recommendation accordingly. SURYA Raheel BRAGG WAFER FAB OPERATOR WAFER FAB OPERATOR D I MT: Rachele
--- NOTE | 2019-04-06 08:35 | P.CDI_ITS ---
CDI Query Clarification Request -CHF exacerbation has been documented -Echo findings: Left ventricular chamber dimension is severely enlarged. Left ventricular systolic function is severely reduced, estimated at <15%. There is mildly increased left ventricular wall thickness. The left ventricular diastolic function is grade IV diastolic dysfunction. Please further specify type of CHF on problem list: * Systolic * Diastolic * Systolic and diastolic * Unable to determine <Cyndi Cotto RN - Last Filed: 04/06/19 08:36>
[2019-04-06] MEDS: DULOXETINE HCL 30 MG CAPSULE.DR PO ×2 (09:08→16:48)
[2019-04-06] MEDS: MAGNESIUM OXIDE 400 MG TABLET PO (09:09)
[2019-04-06] MEDS: allopurinoL 100 MG TABLET PO (09:09)
[2019-04-06] MEDS: ENOXAPARIN 80 MG/0.8 ML SYRINGE SUB-Q ×2 (09:09→20:32)
[2019-04-06] MEDS: OPTI-GEN TAB 2 TABLET PO (09:09)
[2019-04-06] MEDS: TAMSULOSIN HCL 0.4 MG CAPSULE PO (09:09)
[2019-04-06] MEDS: LORATADINE 10 MG TABLET PO (09:09)
[2019-04-06] MEDS: FINASTERIDE 5 MG TABLET PO (09:09)
[2019-04-06] MEDS: PANTOPRAZOLE SOD SESQUIHYDRATE 20 MG TAB PO ×2 (09:09→16:48)
[2019-04-06] MEDS: FLUTICASONE PROPIONATE 0.05% NA SPR 16 GM BTL (*BKC) 2 SPRAY NASAL (09:18)
--- NOTE | 2019-04-06 09:35 | PM.PNCARD ---
Progress Note: A&P Additional Plan 83-year-old gentleman with: Ischemic heart disease with surgical revascularization no symptoms of ischemia following CABG History of valvular heart disease according to the report with previous echoes demonstrating significant mitral and aortic regurgitation. Current exam from this weekend apparently shows the valvular regurgitant lesions to be mild. Long discussion with the patient regarding the prognostic ramifications of his very low ejection fraction and difficulties this will present regarding medically treating his cardiomyopathy. Given his advanced age and DNR wishes we will not be pursuing aggressive measures or invasive procedures. I will transition him from IV to low-dose oral amiodarone Discontinue IV furosemide as he does not appear to be significantly volume overloaded at this time and transition to low-dose furosemide with spironolactone Try very low-dose Entresto given his very low ejection fraction Consider low-dose Coreg tomorrow if blood pressure is acceptable. Given this situation, the patient's advanced age prognosis is obviously poor. Time Spent With Patient Time with patient: 15 - 25 minutes Subjective Date/time seen: Date of service: 04/06/19 09:35 Interval history: 83-year-old gentleman with ischemic heart disease and severe left ventricular systolic dysfunction, left bundle branch block and congestive heart failure. Follow-up visit today for medical treatment of the above. Telemetry demonstrates patient is in normal sinus rhythm still has IV amiodarone infusing. LISA-inhibitor has not been prescribed since admission because of concerns regarding hypotension. Patient states he feels better today is no longer significantly short of breath at least at bed rest with nasal cannula oxygen in place. Discussion with the patient regarding his code status wishes he confirms his wish to be DNR. Exam Const: General: comfortable and no acute distress HENMT: Mouth: Yes dry mucous membranes Eyes: Sclera: sclerae normal Pupils: Equal, round and reactive pupils present Neck: Neck: supple Thyroid: thyroid normal Other: 2 cm of JVD above the angle of Gera with the patient at 30 degree Resp: Effort & Inspection: normal respiratory effort Other: Scant bibasilar crackles are present Cardio: Rate: regular rate Rhythm: regular rhythm Other: Summation gallop noted. PMI laterally displaced to the anterior axillary GI: Auscultation: normal bowel sounds Neuro: General: gait normal Cognition (Neuro): normal cognition Extrem: General: normal to inspection Objective Data Vital Signs Vital Signs: Vital Signs - 24 hr 04/05/19 10:00 04/05/19 12:00 04/05/19 14:00 Temperature 36.6 C Pulse Rate 110 H 112 H 108 H Respiratory Rate 16 Blood Pressure 101/60 Pulse Oximetry 100 04/05/19 16:00 04/05/19 18:00 04/05/19 19:36 Temperature 36.5 C 36.5 C Pulse Rate 108 H 104 H 107 H Respiratory Rate 20 28 H Blood Pressure 98/50 L 71/52 L Pulse Oximetry 92 94 04/05/19 20:00 04/05/19 20:45 04/05/19 21:38 Temperature Pulse Rate 109 H Respiratory Rate Blood Pressure 82/50 L Pulse Oximetry 94 95 04/05/19 22:00 04/05/19 22:01 04/06/19 00:00 Temperature Pulse Rate 108 H 110 H 104 H Respiratory Rate Blood Pressure 88/56 L Pulse Oximetry 99 97 04/06/19 00:01 04/06/19 02:00 04/06/19 04:00 Temperature 36.9 C 36.5 C Pulse Rate 104 H 105 H 105 H Respiratory Rate 18 20 Blood Pressure 90/56 L 87/55 L Pulse Oximetry 97 99 04/06/19 06:00 Temperature Pulse Rate 101 H Respiratory Rate Blood Pressure Pulse Oximetry Intake/Output Intake/Output: Intake & Output 04/03/19 04/04/19 04/05/19 04/06/19 23:59 23:59 23:59 23:59 Intake Total 300 1490 1570 463 Output Total 150 1700 850 400 Balance 150 -210 720 63 Meds/Results Medications: Active Medications Generic Name Dose Route Start Last Admin Trade Name Heathq PRN Reas
--- NOTE | 2019-04-06 09:51 | WPDNEUROPN ---
Progress Note: A&P Assessment and Plan (1) Atrial fibrillation with RVR: Code(s): I48.91 - Unspecified atrial fibrillation Status: Acute (2) Community acquired pneumonia: Qualifiers: Laterality: unspecified laterality Qualified Code(s): J18.9 - Pneumonia, unspecified organism Code(s): J18.9 - Pneumonia, unspecified organism Status: Acute (3) CHF exacerbation: Qualifiers: Heart failure type: unspecified Qualified Code(s): I50.9 - Heart failure, unspecified Code(s): I50.9 - Heart failure, unspecified Status: Acute (4) Acute sinusitis: Qualifiers: Sinusitis location: maxillary Recurrence: non-recurrent Qualified Code(s): J01.00 - Acute maxillary sinusitis, unspecified Code(s): J01.90 - Acute sinusitis, unspecified Status: Acute (5) Adjustment disorder with depressed mood: Code(s): F43.21 - Adjustment disorder with depressed mood Status: Acute (6) Atherosclerosis of aorta: Code(s): I70.0 - Atherosclerosis of aorta Status: Acute (7) Fatigue: Qualifiers: Fatigue type: other Qualified Code(s): R53.83 - Other fatigue Code(s): R53.83 - Other fatigue Status: Acute (8) Ischemic cardiomyopathy: Code(s): I25.5 - Ischemic cardiomyopathy Status: Acute (9) Mixed hyperlipidemia: Code(s): E78.2 - Mixed hyperlipidemia Status: Acute (10) Obstructive sleep apnea (adult) (pediatric): Code(s): G47.33 - Obstructive sleep apnea (adult) (pediatric) Status: Acute (11) PMR (polymyalgia rheumatica): Code(s): M35.3 - Polymyalgia rheumatica Status: Acute (12) Vitamin D deficiency, unspecified: Code(s): E55.9 - Vitamin D deficiency, unspecified Status: Acute (13) Parkinsonism: Code(s): G20 - Parkinson's disease Status: Acute Additional Plan cardiology notes reviewed will hold new meds for now Review of Systems Review of Systems: All systems reviewed & are unremarkable except as noted in HPI and below Exam Const: General: cooperative, comfortable and no acute distress Eyes: General: appearance normal, both eyes and all related structures Neck: Neck: full ROM Resp: Effort & Inspection: normal respiratory effort Auscultation: clear to auscultation bilaterally Cardio: Rate: regular rate GI: Auscultation: normal bowel sounds Skin: General skin exam: no rashes or lesions noted Neuro: General: patient oriented x3 and moves all extremities Cranial nerves: Yes CN's II-XII intact bilaterally, Yes Equal, round and reactive pupils present, Yes Bilaterally intact EOM present, Yes Nystagmus not present, Yes Normal facial strength present, Yes Midline tongue present and Yes Symmetric palate elevation present Speech: normal speech Motor exam (neuro): Normal motor muscle tone present throughout Deep tendon reflexes (DTR's): Right triceps reflex intensity grade: 1+, Left triceps reflex intensity grade: 1+, Rt Biceps (C5, C6): 1+, Left biceps reflex intensity grade: 1+, Right brachioradialis reflex intensity grade: 1+, Left brachioradialis reflex intensity grade: 1+, Right patellar reflex intensity grade: 1+, Left patellar reflex intensity grade: 1+, Right ankle reflex intensity grade: 1+ and Left ankle reflex intensity grade: 1+ Psych: Appearance: grossly normal Objective Data Vital Signs Vital Signs: Vital Signs - 24 hr 04/05/19 10:00 04/05/19 12:00 04/05/19 14:00 Temperature 36.6 C Pulse Rate 110 H 112 H 108 H Respiratory Rate 16 Blood Pressure 101/60 Pulse Oximetry 100 04/05/19 16:00 04/05/19 18:00 04/05/19 19:36 Temperature 36.5 C 36.5 C Pulse Rate 108 H 104 H 107 H Respiratory Rate 20 28 H Blood Pressure 98/50 L 71/52 L Pulse Oximetry 92 94 04/05/19 20:00 04/05/19 20:45 04/05/19 21:38 Temperature Pulse Rate 109 H Respiratory Rate Blood Pressure 82/50 L Pulse Oximetry 94 95
--- NOTE | 2019-04-06 09:59 | WPDNEUROPN ---
Progress Note: A&P Assessment and Plan (1) Gout attack: Code(s): M10.9 - Gout, unspecified Status: Acute Additional Plan gout treatment ordered Exam Extrem: General: full ROM and other (right metacapophalyngeal joint swoolen tender with decreased movements julio) Objective Data Vital Signs Vital Signs: Vital Signs - 24 hr 04/05/19 10:00 04/05/19 12:00 04/05/19 14:00 Temperature 36.6 C Pulse Rate 110 H 112 H 108 H Respiratory Rate 16 Blood Pressure 101/60 Pulse Oximetry 100 04/05/19 16:00 04/05/19 18:00 04/05/19 19:36 Temperature 36.5 C 36.5 C Pulse Rate 108 H 104 H 107 H Respiratory Rate 20 28 H Blood Pressure 98/50 L 71/52 L Pulse Oximetry 92 94 04/05/19 20:00 04/05/19 20:45 04/05/19 21:38 Temperature Pulse Rate 109 H Respiratory Rate Blood Pressure 82/50 L Pulse Oximetry 94 95 04/05/19 22:00 04/05/19 22:01 04/06/19 00:00 Temperature Pulse Rate 108 H 110 H 104 H Respiratory Rate Blood Pressure 88/56 L Pulse Oximetry 99 97 04/06/19 00:01 04/06/19 02:00 04/06/19 04:00 Temperature 36.9 C 36.5 C Pulse Rate 104 H 105 H 105 H Respiratory Rate 18 20 Blood Pressure 90/56 L 87/55 L Pulse Oximetry 97 99 04/06/19 06:00 Temperature Pulse Rate 101 H Respiratory Rate Blood Pressure Pulse Oximetry Intake/Output Intake/Output: Intake & Output 04/03/19 04/04/19 04/05/19 04/06/19 23:59 23:59 23:59 23:59 Intake Total 300 1490 1570 463 Output Total 150 1700 850 400 Balance 150 -210 720 63 Meds/Results Medications: Active Medications Generic Name Dose Route Start Last Admin Trade Name Freq PRN Reason Stop Dose Admin Allopurinol 100 mg 04/04/19 08:00 04/06/19 09:09 Zyloprim PO 100 mg DAILY@0800 PENDING SALE TO [facility] Administration Amiodarone HCl 200 mg 04/06/19 09:50 Pacerone PO DAILY@0800 PENDING SALE TO [facility] Duloxetine HCl 30 mg 04/04/19 09:00 04/06/19 09:08 Cymbalta PO 30 mg DAILY [facility] Administration Enoxaparin Sodium 80 mg 04/04/19 21:00 04/06/19 09:09 Lovenox SUB-Q 80 mg Q12HR PERLA Administration Finasteride 5 mg 04/04/19 09:00 04/06/19 09:09 Proscar PO 5 mg DAILY PERLA Administration Fluticasone Propionate 2 spray 04/04/19 09:00 04/06/19 09:18 Flonase 0.05% Nasal [place] NASAL 2 spray DAILY PENDING SALE TO [facility] Administration Ceftriaxone Sodium/Dextrose 1 gm in 50 mls @ 100 mls/hr 04/04/19 11:00 04/05/19 12:30 Rocephin 1 Gm/D5w 50 Ml IVPB Infused Q24H PERLA Infusion Metronidazole 250 mg in 50 mls @ 50 mls/hr 04/04/19 12:00 04/06/19 07:52 Flagyl 250 Mg/Iso Soln 50 Ml IVPB Infused Q6HR [facility] Infusion Doxycycline Hyclate 100 mg/ 100 mls @ 100 mls/hr 04/04/19 13:00 04/06/19 09:10 Dextrose IVPB 100 mls/hr Q12HR [facility] Administration Loratadine 10 mg 04/04/19 09:00 04/06/19 09:09 Claritin PO 10 mg DAILY PENDING SALE TO [facility] Administration Magnesium Oxide 400 mg 04/05/19 10:10 04/06/19 09:09 Mag-Ox PO 400 mg QAM PENDING SALE TO [facility] Administration Miconazole Nitrate 1 applic 04/04/19 09:00 04/05/19 20:55 Miconazole Nitrate 2% Cream TOPICAL 1 applic Q12HR PENDING SALE TO [facility] Administration Multivitamins/Minerals 2 tablet 04/04/19 09:00 04/06/19 09:09 Ocuvite PO 05/04/19 09:01 2 tablet DAILY PENDING SALE TO [facility] Administration Pantoprazole Sodium 20 mg 04/04/19 09:00 04/06/19 09:09 Protonix PO 05/04/19 09:01 20 mg BID PENDING SALE TO [facility] Administration Polyethylene Glycol 17 gm 04/03/19 23:29 Miralax PO DAILY PRN Constipation Sacubitril/Valsartan 1 tab 04/06/19 09:35 Entresto 12 Mg-13 Mg Tablet PO Q12HR PENDING SALE TO [facility] Spironolactone 25 mg 04/06/19 09:50 Aldactone PO QAM PENDING SALE TO [facility] Tamsulosin HCl 0.4 mg 04/04/19 09:00 04/06/19 09:09 Flomax PO 0.4 mg DAILY PERLA Administration Radiology Results: ITS Impressions Pulmonary Quantative Diff Nuc Med 04/03/19 15:59 IMPRESSION: 1: Low probability for pulmonary embolism. Chest X-Ray 04/06/19 09:54 IMPRESSION: 1. L
[2019-04-06] MEDS: SACUBITRIL/VALSARTAN 12-13 MG TABLET 1 TAB PO ×2 (10:35→20:32)
[2019-04-06] MEDS: POTASSIUM CHLORIDE 20 MEQ TABLET.ER 40 MEQ PO (10:37)
[2019-04-06] MEDS: AMIODARONE HCL 200 MG TABLET PO (10:37)
[2019-04-06] MEDS: SPIRONOLACTONE 25 MG TABLET PO (10:38)
--- NOTE | 2019-04-06 10:44 | PC.NURSE ---
potassium changed to pill form per pt request
[2019-04-06] MEDS: MICONAZOLE NITRATE 2% CREAM 30 GM TUBE 1 APPLIC TOPICAL ×2 (11:55→20:32)
--- NOTE | 2019-04-06 15:22 | PM.IMPN ---
Progress Note: A&P Assessment and Plan (1) Atrial fibrillation with RVR: Code(s): I48.91 - Unspecified atrial fibrillation Status: Acute Assessment and Plan: Patient with new onset atrial fibrillation patient seen by computer peripheral equipment operator started the patient on amiodarone and Lovenox, patient is off amiodarone drip now on on oral rate is controlled will switch him over to Eliquis 2.5 mg b.i.d., TSH is normal (2) CHF exacerbation: Qualifiers: Heart failure type: unspecified Qualified Code(s): I50.9 - Heart failure, unspecified Code(s): I50.9 - Heart failure, unspecified Status: Acute Assessment and Plan: 04/06/19 15:22 Patient is 83-year-old male with history of coronary artery disease status post CABG three-vessel 10 years ago with history of hypertension congestive heart failure aortic insufficiency presented emergency department with a complaint of weakness fatigue which he attributed to upper respiratory infection because his also has similar URI, patient complains of chest pain with cough denies any chest pain with exertion denies any fever or chills, patient was seen by computer peripheral equipment operator reviewed his EKG and patient is found to have a new onset atrial fibrillation with RVR started the patient on amiodarone drip and Lovenox, patient is also being treated for community-acquired pneumonia I suspect patient has silent aspiration added Flagyl to cover for anaerobics, patient also has a tremor was seen by his primary care doctor suspect patient may have Parkinson disease however he was not started on any medication pending neurology consult which will get while in the hospital, patient seen by computer peripheral equipment operator patient cardiac echo showed ejection fraction 20% patient being diuresed gently, for AFib patient is still on amiodarone drip rate is about 100 patient is clinically stable may possibly switch him over to p.o. amiodarone and discharge the patient low-dose Eliquis 2.5 mg b.i.d. as patient is over 80 years old poor renal function, patient was seen by Neurology due to patient's current medication regimen recommended to hold starting new medication for Parkinson disease, patient also has severe anxiety he has been taking Cymbalta at 30 mg in the morning and citalopram 20 mg at the bedtime however citalopram interferes with amiodarone so will switch over to Cymbalta 30 mg b.i.d, patient was seen by computer peripheral equipment operator today amiodarone drip postop and switch over to oral, his clinically stable denies any chest pain shortness of breath fever or chills (3) Community acquired pneumonia: Qualifiers: Laterality: unspecified laterality Qualified Code(s): J18.9 - Pneumonia, unspecified organism Code(s): J18.9 - Pneumonia, unspecified organism Status: Acute Assessment and Plan: Patient chest x-ray does not show any sign of pneumonia will stop antibiotics (4) Fatigue: Qualifiers: Fatigue type: other Qualified Code(s): R53.83 - Other fatigue Code(s): R53.83 - Other fatigue Status: Acute Assessment and Plan: Multifactorial in nature. Likely due to a combination of the patient's Parkinson's, acute infection and CHF exacerbation. However cannot also rule out the effect of statin therapy in a patient greater than 80 years old. Will hold patient's statins. Will continue to treat other underlying causes. Patient's fatigue could also be due to his chronic pain and or spinal stenosis. His heart rate is also been variable with episodes of bradycardia interspersed with tachycardia. Will continue to monitor on telemetry in the intermediate unit. (5) Obstructive sleep apnea (adult) (pediatric): Code(s): G47.33 - Obstructive sleep apnea (adult) (pediatric) Status: Acute Assessment and Plan: Auto titrating BiPAP has been ordered. (6) Acute on chronic systolic (congestive) heart failure: Code(s): I50.23 - Acute on chronic systolic (congestive) heart failur
[2019-04-07] VITALS (19 sets, daily range): BP systolic 57–106; BP diastolic 34–86; PULSE 88–110; RESP 18–21; TEMP 35.9–37.1; O2SAT 95–99
[2019-04-07] MEDS: metroNIDAZOLE 250MG/ISO 50 ML 250 MG/50 ML BAG 50 MG IVPB ×4 (00:09→23:29)
[2019-04-07 05:38] LABS: Hematocrit 38.2 % (42.0-52.0); Hemoglobin 12.2 g/dL (14.0-18.0); Immature Platelet Fraction Pct 10.1 % (0.9-11.2); Mean Corpuscular HGB Conc 31.9 g/dl (32-36); Mean Corpuscular Hemoglobin 28.2 pg (26-34); Mean Corpuscular Volume 88.2 fl (80-100); Mean Platelet Volume 13.3 fl (7.4-10.4); Platelet Count Result 237 k/mm3 (150-375); Red Blood Count 4.33 M/mm3 (4.6-6.20); Red Cell Distribution Width 14.5 % (11.5-14.5); White Blood Count 16.4 K/mm3 (4.5-10.0)
[2019-04-07 05:51] LABS: Blood Urea Nitrogen 71 mg/dL (9-20); Calcium 8.4 mg/dL (8.4-10.2); Carbon Dioxide 21 mmol/L (22-30); Chloride 98 mmol/L (98-107); Estimated CRCL calculation 18 ml/min; Estimated Glomerular Filt Rate 21; Glucose 93 mg/dL (75-110); Potassium 4.1 mmol/L (3.4-5.0); Sodium 134 mmol/L (137-145)
[2019-04-07] MEDS: SPIRONOLACTONE 25 MG TABLET PO (08:48)
[2019-04-07] MEDS: SACUBITRIL/VALSARTAN 12-13 MG TABLET 1 TAB PO (08:48)
[2019-04-07] MEDS: TAMSULOSIN HCL 0.4 MG CAPSULE PO (08:48)
[2019-04-07] MEDS: MAGNESIUM OXIDE 400 MG TABLET PO (08:48)
[2019-04-07] MEDS: allopurinoL 100 MG TABLET PO (08:48)
[2019-04-07] MEDS: FINASTERIDE 5 MG TABLET PO (08:48)
[2019-04-07] MEDS: PANTOPRAZOLE SOD SESQUIHYDRATE 20 MG TAB PO ×2 (08:48→18:28)
[2019-04-07] MEDS: AMIODARONE HCL 200 MG TABLET PO (08:49)
[2019-04-07] MEDS: OPTI-GEN TAB 2 TABLET PO (08:49)
[2019-04-07] MEDS: LORATADINE 10 MG TABLET PO (08:49)
[2019-04-07] MEDS: ENOXAPARIN 80 MG/0.8 ML SYRINGE SUB-Q (08:51)
[2019-04-07] MEDS: MICONAZOLE NITRATE 2% CREAM 30 GM TUBE 1 APPLIC TOPICAL ×2 (08:52→20:30)
[2019-04-07] MEDS: FLUTICASONE PROPIONATE 0.05% NA SPR 16 GM BTL (*BKC) 2 SPRAY NASAL (08:52)
[2019-04-07] MEDS: DULOXETINE HCL 30 MG CAPSULE.DR PO ×2 (08:57→18:29)
--- NOTE | 2019-04-07 11:10 | PM.PNCARD ---
Progress Note: A&P Assessment and Plan (1) Atrial fibrillation with RVR: Code(s): I48.91 - Unspecified atrial fibrillation Status: Acute Assessment and Plan: Continue p.o. amiodarone. Anticipate short-term use of amiodarone unless otherwise indicated. Anticoagulated with low-molecular weight heparin. Given his creatinine bumped up to 2.9 this morning. Will change to Eliquis 2.5 mg q.12 hours starting this evening. Will have case management check pricing tomorrow. (2) Community acquired pneumonia: Qualifiers: Laterality: unspecified laterality Qualified Code(s): J18.9 - Pneumonia, unspecified organism Code(s): J18.9 - Pneumonia, unspecified organism Status: Acute Assessment and Plan: Antibiotics as per primary team (3) Ischemic cardiomyopathy: Code(s): I25.5 - Ischemic cardiomyopathy Status: Acute Assessment and Plan: Severe LV systolic dysfunction, ejection fraction about 15%. Hi inhibitor was put on hold due to renal insufficiency and relatively low blood pressure. Low-dose entresto and spironolactone started by Dr. Kaplan yesterday. Given the bump in his renal function these will be stopped. Normal saline 500 cc at 75 cc an hour. Recheck renal function and electrolytes in the morning. If blood pressure improves tomorrow start Metoprolol tartrate at 12.5 mg q.12 hours and see how his blood pressure response. With then discharged on Metoprolol succinate. Additional Plan Prognosis is poor. Plan discussed Dr. Gallardo 1125 04/07/2019 Subjective Date/time seen: 04/07/19 11:10 Interval history: Follow-up for: ischemic heart disease and severe left ventricular systolic dysfunction, left bundle branch block and congestive heart failure. Date of service: 04/07/2019 Subjective: Trying to get comfortable due to arthritis in his neck. No chest pain. Shortness of breath with exertional activity. Some lightheadedness with exertional activity. None of the above at rest. Dry cough slightly better. Review of Systems Constitutional: Constitutional: Denies chills, Denies fatigue, Denies fever(s) and Denies headache(s) Eyes: Eyes: Denies change in vision, Denies loss of vision and Denies eye pain ENT: Reports Normal hearing present, Denies headache(s), Denies lip swelling, Denies epistaxis and Denies sore throat Cardiovascular: Cardiovascular: Denies chest pain, Denies syncope, Reports irregular heart rhythm, Denies leg edema, Denies lightheadedness and Reports dyspnea on exertion Respiratory: Respiratory: Reports cough (Dry), Reports dyspnea on exertion and Denies wheezing Gastrointestinal: Gastrointestinal: Denies abdominal pain, Denies melena, Denies nausea and Denies vomiting Genitourinary: Genitourinary: Denies hematuria Musculoskeletal: Musculoskeletal: Denies myalgias, Reports arthralgias, Denies muscle cramps, Denies muscle weakness and Reports neck pain Integumentary/Breasts: Skin/Breast: Denies pruritus and Denies rash Neurologic: Reports Normal hearing present, Denies behavioral changes, Denies syncope, Denies headache(s) and Denies loss of vision Psychiatric: Psychiatric: Reports anxiety, Denies behavioral changes and Denies depression Endocrine: Endocrine: Denies fatigue, Denies polydipsia and Denies polyuria Hematologic/Lymphatic: Hematologic/Lymphatic: Denies easy bleeding and Denies easy bruising Allergic/Immunologic: Allergic/Immunologic: Denies lip swelling and Denies wheezing Exam Narrative: Exam Narrative: Trying to get comfortable in bed with his arthritis. Const: General: no acute distress, alert, awake and uncomfortable Orientation/consciousness: patient oriented x3 HENMT: Head: normocephalic and atraumatic Ears: hearing grossly normal bilaterally and external ears normal General nose exam: Normal external nose present and no epistaxis Fac
[2019-04-07] MEDS: SODIUM CHLORIDE 0.9% IV 250 ML 75 ML IV CONT (11:53)
--- NOTE | 2019-04-07 16:25 | PM.IMPN ---
Progress Note: A&P Assessment and Plan (1) Atrial fibrillation with RVR: Code(s): I48.91 - Unspecified atrial fibrillation Status: Acute Assessment and Plan: Patient with new onset atrial fibrillation patient seen by rehab consultant started the patient on amiodarone and Lovenox, patient is off amiodarone drip now on on oral rate is controlled will switch him over to Eliquis 2.5 mg b.i.d., TSH is normal (2) CHF exacerbation: Qualifiers: Heart failure type: unspecified Qualified Code(s): I50.9 - Heart failure, unspecified Code(s): I50.9 - Heart failure, unspecified Status: Acute Assessment and Plan: 04/07/19 16:25 Patient is 83-year-old male with history of coronary artery disease status post CABG three-vessel 10 years ago with history of hypertension congestive heart failure aortic insufficiency presented emergency department with a complaint of weakness fatigue which he attributed to upper respiratory infection because his also has similar URI, patient complains of chest pain with cough denies any chest pain with exertion denies any fever or chills, patient was seen by rehab consultant reviewed his EKG and patient is found to have a new onset atrial fibrillation with RVR started the patient on amiodarone drip and Lovenox, patient is also being treated for community-acquired pneumonia I suspect patient has silent aspiration added Flagyl to cover for anaerobics, patient also has a tremor was seen by his primary care doctor suspect patient may have Parkinson disease however he was not started on any medication pending neurology consult which will get while in the hospital, patient seen by rehab consultant patient cardiac echo showed ejection fraction 20% patient being diuresed gently, for AFib patient is still on amiodarone drip rate is about 100 patient is clinically stable may possibly switch him over to p.o. amiodarone and discharge the patient low-dose Eliquis 2.5 mg b.i.d. as patient is over 80 years old poor renal function, patient was seen by Neurology due to patient's current medication regimen recommended to hold starting new medication for Parkinson disease, patient also has severe anxiety he has been taking Cymbalta at 30 mg in the morning and citalopram 20 mg at the bedtime however citalopram interferes with amiodarone so will switch over to Cymbalta 30 mg b.i.d, patient was seen by rehab consultant on 04/06 amiodarone drip was stopped and switch over to oral, today patient kidney function is worsening creatinine is 2.9 most likely secondary to being diuresed IV furosemide and sarah inhibitor stopped patient was gently hydrated, patient is seen by rehab consultant further recommendation to follow, patient is clinically stable he does have short of breath is slight exertion denies any fever or chills (3) Community acquired pneumonia: Qualifiers: Laterality: unspecified laterality Qualified Code(s): J18.9 - Pneumonia, unspecified organism Code(s): J18.9 - Pneumonia, unspecified organism Status: Acute Assessment and Plan: Patient chest x-ray does not show any sign of pneumonia will stop antibiotics (4) Fatigue: Qualifiers: Fatigue type: other Qualified Code(s): R53.83 - Other fatigue Code(s): R53.83 - Other fatigue Status: Acute Assessment and Plan: Multifactorial in nature. Likely due to a combination of the patient's Parkinson's, acute infection and CHF exacerbation. However cannot also rule out the effect of statin therapy in a patient greater than 80 years old. Will hold patient's statins. Will continue to treat other underlying causes. Patient's fatigue could also be due to his chronic pain and or spinal stenosis. His heart rate is also been variable with episodes of bradycardia interspersed with tachycardia. Will continue to monitor on telemetry in the intermediate unit. (5) Obstructive sleep apnea (adult) (pediatric): Code(s): G47.33 -
[2019-04-07] MEDS: APIXABAN 2.5 MG TABLET PO (20:30)
[2019-04-08] VITALS (18 sets, daily range): BP systolic 80–105; BP diastolic 43–57; PULSE 95–120; RESP 18–22; TEMP 36.3–37.1; O2SAT 96–100
[2019-04-08 05:13] LABS: Hematocrit 36.6 % (42.0-52.0); Hemoglobin 11.9 g/dL (14.0-18.0); Immature Platelet Fraction Pct 9.3 % (0.9-11.2); Mean Corpuscular HGB Conc 32.5 g/dl (32-36); Mean Corpuscular Volume 86.1 fl (80-100); Mean Platelet Volume 13.5 fl (7.4-10.4); Platelet Count Result 238 k/mm3 (150-375); Red Blood Count 4.25 M/mm3 (4.6-6.20); Red Cell Distribution Width 14.5 % (11.5-14.5); White Blood Count 13.8 K/mm3 (4.5-10.0)
[2019-04-08] MEDS: metroNIDAZOLE 250MG/ISO 50 ML 250 MG/50 ML BAG 50 MG IVPB ×3 (05:34→17:09)
[2019-04-08 05:36] LABS: Blood Urea Nitrogen 82 mg/dL (9-20); Calcium 8.4 mg/dL (8.4-10.2); Carbon Dioxide 15 mmol/L (22-30); Chloride 98 mmol/L (98-107); Estimated CRCL calculation 15 ml/min; Estimated Glomerular Filt Rate 17; Glucose 87 mg/dL (75-110); Potassium 3.9 mmol/L (3.4-5.0); Sodium 134 mmol/L (137-145)
[2019-04-08] MEDS: TAMSULOSIN HCL 0.4 MG CAPSULE PO (09:45)
[2019-04-08] MEDS: FLUTICASONE PROPIONATE 0.05% NA SPR 16 GM BTL (*BKC) 2 SPRAY NASAL (09:45)
[2019-04-08] MEDS: LORATADINE 10 MG TABLET PO (09:45)
[2019-04-08] MEDS: MICONAZOLE NITRATE 2% CREAM 30 GM TUBE 1 APPLIC TOPICAL ×2 (09:45→20:42)
[2019-04-08] MEDS: DULOXETINE HCL 30 MG CAPSULE.DR PO ×2 (09:46→17:08)
[2019-04-08] MEDS: allopurinoL 100 MG TABLET PO (09:46)
[2019-04-08] MEDS: APIXABAN 2.5 MG TABLET PO ×2 (09:46→20:42)
[2019-04-08] MEDS: FINASTERIDE 5 MG TABLET PO (09:46)
[2019-04-08] MEDS: PANTOPRAZOLE SOD SESQUIHYDRATE 20 MG TAB PO ×2 (09:46→17:08)
[2019-04-08] MEDS: OPTI-GEN TAB 2 TABLET PO (09:46)
[2019-04-08] MEDS: AMIODARONE HCL 200 MG TABLET PO (10:29)
[2019-04-08] MEDS: SODIUM CHLORIDE 0.9% IV 250 ML 999 ML IV CONT (10:32)
--- NOTE | 2019-04-08 12:02 | PCPTNOTE ---
Attempted to see patient, however patient was not able to participate at this time.
--- NOTE | 2019-04-08 12:53 | PM.PNCARD ---
Progress Note: A&P Assessment and Plan (1) Atrial fibrillation with RVR: Code(s): I48.91 - Unspecified atrial fibrillation Status: Acute Assessment and Plan: Continue p.o. amiodarone. Anticipate short-term use of amiodarone unless otherwise indicated. Anticoagulation changed to apixaban last evening. (2) Community acquired pneumonia: Qualifiers: Laterality: unspecified laterality Qualified Code(s): J18.9 - Pneumonia, unspecified organism Code(s): J18.9 - Pneumonia, unspecified organism Status: Acute Assessment and Plan: Antibiotics as per primary team (3) Ischemic cardiomyopathy: Code(s): I25.5 - Ischemic cardiomyopathy Status: Acute Assessment and Plan: Severe LV systolic dysfunction, ejection fraction about 15%. Medications have been discontinued due to renal function and hypotension. Remains hypotensive with lightheadedness. BUN and creatinine are worsening. Most likely due to poor perfusion. Nephrology has been consulted. Most likely looking at end-stage disease. Very little to offer. Could do dobutamine infusion to improve renal perfusion however this would be shown thing that would be done short term. Risk would be aggravating his hypotension further and risk arrhythmias. Additional Plan Prognosis is poor. Consider hospice. Cocudmhu-[id number] notified by nursing staff. Plan discussed Dr. Kaplan 10:00 a.m. 04/08/2019 Subjective Date/time seen: 04/08/19 12:53 Interval history: Follow-up for: ischemic heart disease and severe left ventricular systolic dysfunction, left bundle branch block and congestive heart failure. Date of service: 04/08/2019 Subjective: Having a lot of back pain at this time. No chest discomfort. Lightheaded. short of breath with exertional activity. Still trying to get comfortable. Back support help some. Family at bedside. Review of Systems Constitutional: Constitutional: Denies chills, Denies fatigue, Denies fever(s) and Denies headache(s) Eyes: Eyes: Denies change in vision, Denies loss of vision and Denies eye pain ENT: Reports Normal hearing present, Denies headache(s), Denies lip swelling, Denies epistaxis, Reports neck pain and Denies sore throat Cardiovascular: Cardiovascular: Denies chest pain, Denies syncope, Reports irregular heart rhythm, Reports leg edema, Reports lightheadedness and Reports dyspnea on exertion Respiratory: Respiratory: Reports cough (Dry), Reports dyspnea on exertion and Denies wheezing Gastrointestinal: Gastrointestinal: Denies abdominal pain, Denies melena, Denies nausea and Denies vomiting Genitourinary: Genitourinary: Denies hematuria Musculoskeletal: Musculoskeletal: Denies myalgias, Reports arthralgias, Denies muscle cramps, Denies muscle weakness and Reports neck pain Integumentary/Breasts: Skin/Breast: Denies pruritus and Denies rash Neurologic: Reports Normal hearing present, Denies behavioral changes, Denies syncope, Denies headache(s) and Denies loss of vision Psychiatric: Psychiatric: Denies behavioral changes and Denies depression Endocrine: Endocrine: Denies fatigue, Denies polydipsia and Denies polyuria Hematologic/Lymphatic: Hematologic/Lymphatic: Denies easy bleeding and Denies easy bruising Allergic/Immunologic: Allergic/Immunologic: Denies lip swelling and Denies wheezing Exam Narrative: Exam Narrative: Family at bedside Const: General: no acute distress, alert, awake and uncomfortable Orientation/consciousness: patient oriented x3 HENMT: Head: normocephalic and atraumatic Ears: hearing grossly normal bilaterally and external ears normal General nose exam: Normal external nose present and no epistaxis Face and sinus: normal facial exam and no ecchymosis Mouth: Yes tongue normal and Yes dry mucous membranes Eyes: Conjunctivae: conjunctivae normal Sclera: sclerae normal Pupils: Equal, roun
[2019-04-08] MEDS: BENZONATATE 100 MG CAPSULE PO (17:08)
--- NOTE | 2019-04-08 17:29 | PM.IMPN ---
Progress Note: A&P Assessment and Plan (1) Atrial fibrillation with RVR: Code(s): I48.91 - Unspecified atrial fibrillation Status: Acute Assessment and Plan: Patient with new onset atrial fibrillation patient seen by analysis specialist started the patient on amiodarone and Lovenox, patient is off amiodarone drip now on on oral rate is controlled will switch him over to Eliquis 2.5 mg b.i.d (2) CHF exacerbation: Qualifiers: Heart failure type: unspecified Qualified Code(s): I50.9 - Heart failure, unspecified Code(s): I50.9 - Heart failure, unspecified Status: Acute Assessment and Plan: Long discussion with patient regarding pts ongoing hypotension and investigations in the hospital. Echo shows EF of 15% and pts GFR is 17. Pt realises he is chronically ill he does not feel well, wants to discuss with family about hospice. Pt has decided about hospice, will go home with hospice tomorrow. Main compliant today is cough. Explained to him about pulmonary edema and low bps and any diuretics drop his bp further. (3) Community acquired pneumonia: Qualifiers: Laterality: unspecified laterality Qualified Code(s): J18.9 - Pneumonia, unspecified organism Code(s): J18.9 - Pneumonia, unspecified organism Status: Acute Assessment and Plan: Recent chest x-ray does not show any sign of pneumonia, antibiotics stopped (4) Fatigue: Qualifiers: Fatigue type: other Qualified Code(s): R53.83 - Other fatigue Code(s): R53.83 - Other fatigue Status: Acute Assessment and Plan: Multifactorial in nature. Weak heart and kidneys, elderly. (5) Obstructive sleep apnea (adult) (pediatric): Code(s): G47.33 - Obstructive sleep apnea (adult) (pediatric) Status: Acute Assessment and Plan: Auto titrating BiPAP has been ordered. (6) Acute on chronic systolic (congestive) heart failure: Code(s): I50.23 - Acute on chronic systolic (congestive) heart failure Status: Acute Assessment and Plan: Patient with history of severe ischemic cardiomyopathy with ejection fraction of 15% most likely patient has acute on chronic systolic congestive heart failure patient is being diuresed his symptoms are improving Subjective Date/time seen: 04/08/19 17:29 Interval history: 83-year-old male with history of coronary artery disease status post CABG three-vessel 10 years ago with history of hypertension congestive heart failure aortic insufficiency presented emergency department with a complaint of weakness fatigue which he attributed to upper respiratory infection because his also has similar URI, patient complains of chest pain with cough denies any chest pain with exertion denies any fever or chills, patient was seen by analysis specialist reviewed his EKG and patient is found to have a new onset atrial fibrillation with RVR started the patient on amiodarone drip and Lovenox, patient is also being treated for community-acquired pneumonia I suspect patient has silent aspiration added Flagyl to cover for anaerobics, patient also has a tremor was seen by his primary care doctor suspect patient may have Parkinson disease however he was not started on any medication pending neurology consult which will get while in the hospital, patient seen by analysis specialist patient cardiac echo showed ejection fraction 20% patient being diuresed gently, for AFib patient is still on amiodarone drip rate is about 100 patient is clinically stable may possibly switch him over to p.o. amiodarone and discharge the patient low-dose Eliquis 2.5 mg b.i.d. as patient is over 80 years old poor renal function, patient was seen by Neurology due to patient's current medication regimen recommended to hold starting new medication for Parkinson disease, patient also has severe anxiety he has been taking Cymbalta at 30 mg in the morning and citalopram 20 mg at the bedtime however citalopram interferes
[2019-04-09] VITALS (8 sets, daily range): BP systolic 85–92; BP diastolic 45; PULSE 97–108; RESP 18–22; TEMP 36.2; O2SAT 97
[2019-04-09] MEDS: metroNIDAZOLE 250MG/ISO 50 ML 250 MG/50 ML BAG 50 MG IVPB ×2 (00:31→05:54)
[2019-04-09 04:28] LABS: Creatinine Urine 127.9 mg/dL; Total Protein Urine Random 11 mg/dL
[2019-04-09 04:54] LABS: Sodium Urine Random 15 meq/L
[2019-04-09] MEDS: TAMSULOSIN HCL 0.4 MG CAPSULE PO (07:55)
[2019-04-09] MEDS: FLUTICASONE PROPIONATE 0.05% NA SPR 16 GM BTL (*BKC) 2 SPRAY NASAL (07:55)
[2019-04-09] MEDS: allopurinoL 100 MG TABLET PO (07:55)
[2019-04-09] MEDS: OPTI-GEN TAB 2 TABLET PO (07:55)
[2019-04-09] MEDS: FINASTERIDE 5 MG TABLET PO (07:56)
[2019-04-09] MEDS: PANTOPRAZOLE SOD SESQUIHYDRATE 20 MG TAB PO (07:56)
[2019-04-09] MEDS: LORATADINE 10 MG TABLET PO (07:56)
[2019-04-09] MEDS: DULOXETINE HCL 30 MG CAPSULE.DR PO (07:56)
[2019-04-09] MEDS: APIXABAN 2.5 MG TABLET PO (07:56)
[2019-04-09] MEDS: BENZONATATE 100 MG CAPSULE PO (07:57)
[2019-04-09] MEDS: MICONAZOLE NITRATE 2% CREAM 30 GM TUBE 1 APPLIC TOPICAL (07:57)
[2019-04-09] MEDS: AMIODARONE HCL 200 MG TABLET PO (09:06)
--- NOTE | 2019-04-09 09:16 | PM.DS ---
DS: Diagnosis Admitting Diagnosis Admitting Diagnosis: Heart failure, unspecified Discharge Diagnosis (1) Atrial fibrillation with RVR: Code(s): I48.91 - Unspecified atrial fibrillation Status: Acute Assessment and Plan: Patient with new onset atrial fibrillation patient seen by [employer] started the patient on amiodarone and Lovenox, patient is off amiodarone drip now on on oral rate is controlled will switch him over to Eliquis 2.5 mg b.i.d and amiodarone (2) CHF exacerbation: Qualifiers: Heart failure type: unspecified Qualified Code(s): I50.9 - Heart failure, unspecified Code(s): I50.9 - Heart failure, unspecified Status: Acute Assessment and Plan: Long discussion with patient regarding pts ongoing hypotension and investigations in the hospital. Echo shows EF of 15% and pts GFR is 17. Pt realises he is chronically ill he does not feel well, wants to discuss with family about hospice. Pt has decided about hospice, will go home with hospice tomorrow. Main compliant today is cough. Explained to him about pulmonary edema and low bps and any diuretics drop his bp further. BP and BPH and lasix on hold due to low BPs. (3) Community acquired pneumonia: Qualifiers: Laterality: unspecified laterality Qualified Code(s): J18.9 - Pneumonia, unspecified organism Code(s): J18.9 - Pneumonia, unspecified organism Status: Acute Assessment and Plan: Recent chest x-ray does not show any sign of pneumonia, antibiotics stopped (4) Fatigue: Qualifiers: Fatigue type: other Qualified Code(s): R53.83 - Other fatigue Code(s): R53.83 - Other fatigue Status: Acute Assessment and Plan: Multifactorial in nature. Weak heart and kidneys, elderly. (5) Obstructive sleep apnea (adult) (pediatric): Code(s): G47.33 - Obstructive sleep apnea (adult) (pediatric) Status: Acute Assessment and Plan: Auto titrating BiPAP has been ordered. Pt is not needing BIPAP today. (6) Acute on chronic systolic (congestive) heart failure: Code(s): I50.23 - Acute on chronic systolic (congestive) heart failure Status: Acute Assessment and Plan: Patient with history of severe ischemic cardiomyopathy with ejection fraction of 15% most likely patient has acute on chronic systolic congestive heart failure patient is being diuresed his symptoms are improving DS: Summary Time Spent with Patient Time attestation: Total time spent providing and/or coordinating discharge services:40 minutes on day of discharge Exam Narrative: Exam Narrative: Elderly frail chronically ill Const: General: no acute distress and uncomfortable HENMT: General nose exam: Normal nares present Mouth: Yes moist mucous membranes Eyes: General: appearance normal, both eyes and all related structures Sclera: sclerae normal Neck: Neck: supple Resp: Other: Bilateral poor air entry with rales and rhonchi Cardio: Other: Irregularly irregular GI: Auscultation: normal bowel sounds Skin: General skin exam: normal color and no rashes or lesions noted Neuro: Speech: normal speech Sensory Exam: normal sensation Extrem: General: normal to inspection Psych: Affect: Anxious affect present DS: Data Data Completed and Pending Labs on day of discharge: Labs from last 24 hours 04/09/19 04/09/19 02:24 02:24 Urine Eosinophils Pending Ur Random Creatinine Pending U Random Total Protein 11 Ur Random Sodium 15 Ur Random Chloride Pending U Random Chloride/Creat Pending Urine Creatinine 127.9 Preliminary micro results at discharge 04/03/19 11:09 Blood Culture - Preliminary Blood 04/03/19 11:09 Blood Culture - Preliminary Blood Discharge Plan Discharge Attending physician on discharge: Yeimy Kennedy Consulting providers: Pritesh Arteaga ; Adrian Jensen Discharging Clinician: Yeimy Kennedy Anticipat
--- NOTE | 2019-04-09 09:21 | PM.PNCARD ---
Progress Note: A&P Assessment and Plan (1) Atrial fibrillation with RVR: Code(s): I48.91 - Unspecified atrial fibrillation Status: Acute Assessment and Plan: Maintaining normal sinus rhythm. Continue amiodarone. Currently anticoagulated with Eliquis. Hospice to determine if this needs to be continued. (2) Community acquired pneumonia: Qualifiers: Laterality: unspecified laterality Qualified Code(s): J18.9 - Pneumonia, unspecified organism Code(s): J18.9 - Pneumonia, unspecified organism Status: Acute Assessment and Plan: Management per hospitalist (3) Ischemic cardiomyopathy: Code(s): I25.5 - Ischemic cardiomyopathy Status: Acute Assessment and Plan: Given his poor LV function, renal failure and hypotension he and his family have elected to go home on hospice. Did have an episode of nonsustained ventricular tachycardia overnight. No labs were drawn this morning. Dr Egan was updated yesterday. Additional Plan Plan discussed with Dr. Gallardo 92904/09/2019 Time Spent With Patient Time with patient: less than 15 minutes Subjective Date/time seen: 04/09/19 09:21 Interval history: Follow-up for: ischemic heart disease and severe left ventricular systolic dysfunction, CHF, left bundle branch block and renal failure. Date of service: 04/08/2019 Subjective: Only complaint is neck pain from his arthritis. No chest pain. Short of breath with exertional activities but not at rest. No lightheadedness. No lower extremity edema. Appetite is good. Review of Systems Constitutional: Constitutional: Denies chills, Denies fatigue, Denies fever(s) and Denies headache(s) Eyes: Eyes: Denies change in vision, Denies loss of vision and Denies eye pain ENT: Reports Normal hearing present, Denies headache(s), Denies lip swelling, Denies epistaxis, Reports neck pain and Denies sore throat Cardiovascular: Cardiovascular: Denies chest pain, Reports irregular heart rhythm, Reports leg edema and Reports dyspnea on exertion Respiratory: Respiratory: Reports cough (Dry), Reports dyspnea on exertion and Denies wheezing Gastrointestinal: Gastrointestinal: Denies abdominal pain, Denies melena, Denies nausea and Denies vomiting Genitourinary: Genitourinary: Denies hematuria Musculoskeletal: Musculoskeletal: Denies myalgias, Reports arthralgias, Denies muscle cramps, Denies muscle weakness and Reports neck pain Integumentary/Breasts: Skin/Breast: Denies pruritus and Denies rash Neurologic: Reports Normal hearing present, Denies behavioral changes, Denies syncope, Denies headache(s) and Denies loss of vision Psychiatric: Psychiatric: Denies behavioral changes and Denies depression Endocrine: Endocrine: Denies fatigue, Denies polydipsia and Denies polyuria Hematologic/Lymphatic: Hematologic/Lymphatic: Denies easy bleeding and Denies easy bruising Allergic/Immunologic: Allergic/Immunologic: Denies lip swelling and Denies wheezing Exam Narrative: Exam Narrative: Family at bedside Const: General: no acute distress, alert, awake and uncomfortable Orientation/consciousness: patient oriented x3 HENMT: Head: normocephalic and atraumatic Ears: hearing grossly normal bilaterally and external ears normal General nose exam: Normal external nose present and no epistaxis Face and sinus: normal facial exam and no ecchymosis Mouth: Yes tongue normal and Yes dry mucous membranes Eyes: Conjunctivae: conjunctivae normal Sclera: sclerae normal Pupils: Equal, round and reactive pupils present Neck: Neck: normal visual inspection and supple Resp: Effort & Inspection: normal respiratory effort and able to speak in complete sentences Auscultation: crackles on the right (Very faint) at the base and no wheezes Cardio: Rate: regular rate Rhythm: regular rhythm Heart sounds: S1 normal heart sound present and S2 normal heart sound
[2019-04-13 18:54] LABS: Chloride Rand Ur < 20 mmol/L (32-290); Creatinine Random Urine 114 mg/dL (20-320)
== END 2019-04-09 13:52 | disposition hospice, home (50) | DRG 293 ==
LOC: ANHED 13:05 → ANHIMU 17:01
PROVIDERS: Family Medicine; Internal Medicine; Internal Medicine Nephrology; Admitting Provider Internal Medicine; Emergency Provider Emergency Medicine; PCP Family Medicine; Visit Provider Family Medicine
DX: I11.0 Hypertensive heart disease with heart failure (principal); I50.23 Acute on chronic systolic (congestive) heart failure; I48.91 Unspecified atrial fibrillation; N40.0 Benign prostatic hyperplasia without lower urinary tract symptoms; I25.10 Atherosclerotic heart disease of native coronary artery without angina pectoris; K21.9 Gastro-esophageal reflux disease without esophagitis; G20 Parkinson's disease; I25.5 Ischemic cardiomyopathy; I44.7 Left bundle-branch block, unspecified; I73.9 Peripheral vascular disease, unspecified; M48.00 Spinal stenosis, site unspecified; E78.5 Hyperlipidemia, unspecified; M10.9 Gout, unspecified; E55.9 Vitamin D deficiency, unspecified; J01.90 Acute sinusitis, unspecified; I95.9 Hypotension, unspecified; N19 Unspecified kidney failure; M35.3 Polymyalgia rheumatica; I70.0 Atherosclerosis of aorta; H35.30 Unspecified macular degeneration; M19.90 Unspecified osteoarthritis, unspecified site; G47.33 Obstructive sleep apnea (adult) (pediatric); Z86.718 Personal history of other venous thrombosis and embolism; Z95.1 Presence of aortocoronary bypass graft; Z98.42 Cataract extraction status, left eye; Z98.41 Cataract extraction status, right eye
CPT/HCPCS: 36415; 71046; 78598; 80048; 81050; 82436; 82570; 83605; 83735; 83880; 84156; 84300; 84443; 84484; 85025; 85027; 85055; 85380; 85999; 87040; 87804; 92610; 92611; 93005; 93306; 94660; 96365; 96367; 96375; 97110; 97162; 97530; 97535; 99285; A9270; A9540; A9558; J0282; J0456; J0696; J1650; J1940; J7050